=== PATIENT | female | born 1990 | race Caucasian/White ===

== ENCOUNTER 2019-10-10 12:53 | Outpatient (CLI) | payer OTHER | END 2019-10-10 23:59 | disposition home or self-care (01) | LOC: CVU 12:53 | PROVIDERS: ATTEND Internal Medicine Cardiovascular Disease | DX: I07.1 Rheumatic tricuspid insufficiency (principal); R42 Dizziness and giddiness; R00.2 Palpitations | CPT/HCPCS: 93306; 93356 ==